=== PATIENT | female | born 1990 | race Two or more races ===

== ENCOUNTER 2021-07-22 07:47 | Inpatient (IN) | payer MEDICAID ==
[~2021-07-22] VITALS: Ht 160 cm; Wt 98.9 kg
[2021-07-22] MEDS ORDERED: NALOXONE HCL 0.4 MG/ML 1ML VIAL IM PRN (09:00)
[2021-07-22] MEDS ORDERED: METHYLERGONOVINE MALEATE 0.2 MG/ML IM PRN (09:00)
[2021-07-22] MEDS ORDERED: CARBOPROST TROMETHAMINE 250 MCG/ML AMPUL IM PRN (09:00)
[2021-07-22] MEDS ORDERED: DEXT 5%/LR + PITOCIN 20UNITS/L 1,000 ML IV SCH (09:00)
[2021-07-22] MEDS: LACTATED RINGERS 1,000 ML IV SCH ×4 (09:23→23:49)
[2021-07-22] MEDS ORDERED: BUDE90AE INH (09:27)
[2021-07-22 09:45] LABS: BASOPHILS % 1.1 % (0.0-2.0); EOSINOPHILS % 6.8 % (0.0-5.0); HEMATOCRIT. 32.4 % (36.0-48.0); HEMOGLOBIN. 10.3 g/dL (12.0-16.0); LYMPHOCYTES % 19.2 % (20.0-50.0); MEAN CORPUSCULAR HEMOGLOBIN 24.6 pg (28.0-32.0); MEAN CORPUSCULAR VOLUME 77.4 fL (81.0-99.0); MEAN PLATELET VOLUME 10.3 fl (7.4-10.4); MONOCYTES % 5.8 % (2.0-8.0); NEUTROPHILS % 67.1 % (40.0-76.0); PLATELET 250 x1000/uL (130-400); RED BLOOD CELL COUNT 4.18 mill/uL (4.2-5.4); RED CELL DISTRIBUTION WIDTH 15.2 % (11.6-14.6)
[2021-07-22 09:52] LABS: CLARITY URINE CLOUDY (CLEAR); COLOR URINE DARK YELLOW (YELLOW); KETONES URINE NEGATIVE (NEGATIVE); LEUKOCYTE ESTERASE URINE TRACE (NEGATIVE); NITRITE URINE NEGATIVE (NEGATIVE); OCCULT BLOOD URINE NEGATIVE (NEGATIVE); PROTEIN URINE 1+ (NEGATIVE); SPECIFIC GRAVITY URINE 1.034 (1.005-1.030)
[2021-07-22 09:57] LABS: PARTIAL THROMBOPLASTIN TIME 29.9 sec (23.4-31.0); PROTHROMBIN TIME 10.6 sec (9.6-11.0)
[2021-07-22 10:45] LABS: *BARBITURATES SCREEN URINE NEGATIVE (NEGATIVE)
[2021-07-22] MEDS ORDERED: LABETALOL 5MG/ML SYR 20 MG/4 ML SYRINGE IV PRN ×2 (10:45→17:30)
[2021-07-22] MEDS ORDERED: HYDROMORPHONE HCL/PF 2MG/ML CPJ IV PRN ×2 (10:45→17:30)
[2021-07-22] MEDS ORDERED: BUTORPHANOL TARTRATE 2 MG/ML VIAL IM PRN ×2 (10:45→17:30)
[2021-07-22] MEDS ORDERED: ONDANSETRON HCL 4MG/2ML INJ IV PRN ×3 (10:45→17:30)
[2021-07-22] MEDS ORDERED: MEPERIDINE HCL/PF 25MG/ML CPJ IV PRN ×2 (10:45→17:30)
[2021-07-22] MEDS ORDERED: DIPHENHYDRAMINE 50MG/ML VIAL IV PRN ×2 (10:45→17:30)
[2021-07-22 10:46] LABS: *BENZODIAZEPINES SCREEN URINE NEGATIVE (NEGATIVE); *COCAINE SCREEN URINE NEGATIVE (NEGATIVE); METHADONE URINE SCREEN NEGATIVE (NEGATIVE); OPIATES URINE SCREEN NEGATIVE (NEGATIVE)
[2021-07-22 10:47] LABS: *AMPHETAMINES SCREEN URINE NEGATIVE (NEGATIVE); CANNABINOID URINE SCREEN NEGATIVE (NEGATIVE); PHENCYCLIDINE URINE SCREEN NEGATIVE (NEGATIVE)
[2021-07-22 12:01] LABS: HEPATITIS B SURFACE ANTIGEN NEGATIVE
[2021-07-22] MEDS ORDERED: MORPHINE SULFATE/PF 1MG/ML 10ML AMP ONE (16:42)
[2021-07-22] MEDS ORDERED: FENTANYL CITRATE/PF 50MCG/ML 2ML VIAL ONE (16:42)
[2021-07-22] MEDS ORDERED: HYDROCODONE/ACETAMINOPHEN 5/325MG TABLET PO PRN (17:15)
[2021-07-22] MEDS ORDERED: DIPHENHYDRAMINE 25MG CAPSULE PO PRN (17:15)
[2021-07-22] MEDS ORDERED: CEFAZOLIN SODIUM 1000MG/VIAL ONE ×2 (17:15→17:30)
[2021-07-22] MEDS ORDERED: RHO(D) IMMUNE GLOBULIN 300 MCG/SYR IM PRN (17:15)
[2021-07-22] MEDS ORDERED: HEMORRHOIDAL SUPP PR PRN (17:15)
[2021-07-22] MEDS ORDERED: MIDAZOLAM HCL 2 MG/2 ML VIAL ONE (17:16)
[2021-07-22] MEDS ORDERED: EPHEDRINE SULFATE 50MG/ML VIAL ONE (17:30)
[2021-07-22] MEDS ORDERED: KETOROLAC 30MG/ML VIAL IV PRN (17:30)
[2021-07-22] MEDS ORDERED: SODIUM CHLORIDE 0.9% 10ML VIAL ONE (17:30)
[2021-07-22] MEDS: DEXT 5%/LR + PITOCIN 20UNITS/L 1,000 ML IV SCH (18:34)
[2021-07-22 20:30] VITALS: BP 134/69
[2021-07-22 21:00] VITALS: BP 130/61
[2021-07-22 22:00] VITALS: BP 105/56
[2021-07-22] MEDS: KETOROLAC 30MG/ML VIAL IV PRN (22:01)
[2021-07-23] VITALS: BP 115/57
[2021-07-23] MEDS: DEXT 5%/LR + PITOCIN 20UNITS/L 1,000 ML IV SCH (01:32)
[2021-07-23 04:00] VITALS: BP 114/60
[2021-07-23] MEDS: KETOROLAC 30MG/ML VIAL IV PRN (05:05)
[2021-07-23 05:59] LABS: BASOPHILS % 0.4 % (0.0-2.0); HEMATOCRIT. 26.5 % (36.0-48.0); HEMOGLOBIN. 8.9 g/dL (12.0-16.0); LYMPHOCYTES % 13.5 % (20.0-50.0); MEAN CORPUSCULAR HEMOGLOBIN 25.5 pg (28.0-32.0); MEAN PLATELET VOLUME 10.4 fl (7.4-10.4); MONOCYTES % 7.2 % (2.0-8.0); NEUTROPHILS % 74.9 % (40.0-76.0); PLATELET 186 x1000/uL (130-400); RED BLOOD CELL COUNT 3.49 mill/uL (4.2-5.4); RED CELL DISTRIBUTION WIDTH 14.9 % (11.6-14.6)
[2021-07-23 07:52] VITALS: BP 104/62
[2021-07-23] MEDS: MAGNESIUM/ALUMINUM HYDROXIDE/SIMETHICONE 30ML UDC PO SCH ×5 (08:30→21:38)
[2021-07-23] MEDS: FERROUS SULFATE 325MG TABLET PO SCH ×3 (09:03→18:01)
[2021-07-23] MEDS: SIMETHICONE 80MG TABLET CHEW PO SCH ×4 (09:05→21:38)
[2021-07-23] MEDS: PRENATAL VIT/FE FUMARATE/FA TABLET PO SCH (09:07)
[2021-07-23] MEDS: IBUPROFEN 400MG TABLET PO PRN ×2 (11:59→18:04)
[2021-07-23] MEDS: ACETAMINOPHEN WITH CODEINE 300/30MG TABLET PO PRN ×2 (15:55→21:38)
[2021-07-23 16:10] VITALS: BP 110/53
[2021-07-23] MEDS ORDERED: TETANUS, DIPHTHERIA, PERTUSSIS VAC/PF 0.5ML (>10YR OLD) IM ONE (18:45)
[2021-07-23] MEDS ORDERED: INFLUENZA VACCINE 05/PF 0.5 ML SYRINGE IM ONE (18:45)
[2021-07-23 20:00] VITALS: BP 119/62
[2021-07-23] MEDS: DOCUSATE SODIUM 100MG CAPSULE PO SCH (21:38)
[2021-07-23] MEDS: BISACODYL 10MG SUPP PR PRN (21:38)
[2021-07-24] VITALS: BP 134/65
[2021-07-24] MEDS: ACETAMINOPHEN WITH CODEINE 300/30MG TABLET PO PRN ×4 (01:49→20:19)
[2021-07-24 04:00] VITALS: BP 119/69
[2021-07-24 08:00] VITALS: BP 115/58
[2021-07-24] MEDS: MAGNESIUM/ALUMINUM HYDROXIDE/SIMETHICONE 30ML UDC PO SCH ×4 (08:59→20:20)
[2021-07-24] MEDS: PRENATAL VIT/FE FUMARATE/FA TABLET PO SCH (08:59)
[2021-07-24] MEDS: SIMETHICONE 80MG TABLET CHEW PO SCH ×4 (09:00→21:00)
[2021-07-24] MEDS: FERROUS SULFATE 325MG TABLET PO SCH ×3 (09:00→18:14)
[2021-07-24] MEDS: BISACODYL 10MG SUPP PR PRN (14:03)
[2021-07-24 16:15] VITALS: BP 115/65
[2021-07-24 20:00] VITALS: BP 116/75
[2021-07-24] MEDS: DOCUSATE SODIUM 100MG CAPSULE PO SCH (21:00)
[2021-07-25] VITALS: BP 128/71
[2021-07-25] MEDS: ACETAMINOPHEN WITH CODEINE 300/30MG TABLET PO PRN ×2 (00:41→04:46)
[2021-07-25 04:00] VITALS: BP 124/72
[2021-07-25] MEDS: MAGNESIUM/ALUMINUM HYDROXIDE/SIMETHICONE 30ML UDC PO SCH (07:30)
[2021-07-25 08:00] VITALS: BP 129/76
[2021-07-25] MEDS: PRENATAL VIT/FE FUMARATE/FA TABLET PO SCH (08:00)
[2021-07-25] MEDS: SIMETHICONE 80MG TABLET CHEW PO SCH (08:00)
== END 2021-07-25 12:30 | disposition home or self-care (01) | DRG 539 ==
LOC: OBSVTOIN 07:47 → 8 EST LDRP 07:47 → INTOOBSV 07:47 → 8EST 21:00
PROVIDERS: ADMIT Obstetrics & Gynecology; ATTEND Obstetrics & Gynecology
PROC: 10D00Z1 Extraction of Products of Conception, Low, Open Approach (ICD-10-PCS; principal; 2021-07-23)
PROC: 0UB70ZZ Excision of Bilateral Fallopian Tubes, Open Approach (ICD-10-PCS; 2021-07-23)
DX: O34.211 Maternal care for low transverse scar from previous cesarean delivery (principal); D62 Acute posthemorrhagic anemia; O99.02 Anemia complicating childbirth; Z37.0 Single live birth; Z20.822 Contact with and (suspected) exposure to COVID-19; Z30.2 Encounter for sterilization; Z3A.39 39 weeks gestation of pregnancy; O69.81X0 Labor and delivery complicated by cord around neck, without compression, not applicable or unspecified
CPT/HCPCS: 36415; 80305; 81003; 85025; 86592; 86703; 86762; 86850; 86900; 86920; 87340; 87426; 88302; 88307; 90686; 90715; 99281; J0690; J1200; J1885; J2250; J2274; J2405; J2590; J3010; J3490; J7120; A4315